=== PATIENT | male | born 1955 | race Caucasian/White ===

== ENCOUNTER 2017-08-23 23:50 | Observation (INO) | payer OTHER ==
[~2017-08-23] VITALS: Ht 180.3 cm; Wt 120.0 kg
[2017-08-23 23:54] VITALS: BP 170/115; PULSE 115; RESP 20; TEMP 98.5; O2SAT 97
[2017-08-24] VITALS (18 sets, daily range): BP systolic 132–170; BP diastolic 61–85; PULSE 99–109; RESP 16–20; TEMP 97.2–98.3; O2SAT 94–98
[2017-08-24] MEDS ORDERED: TRIA37.53 PO (00:11)
[2017-08-24] MEDS ORDERED: ALLO100T PO (00:11)
[2017-08-24] MEDS ORDERED: LISI40TA PO (00:12)
[2017-08-24] MEDS ORDERED: SODIUM CHLORIDE 0.9% FLUSH 10 ML FLUSH IVF PRN (00:15)
[2017-08-24] MEDS ORDERED: SODIUM CHLOR 0.9% 250 ML INJ 250 ML IV ONE (00:15)
--- NOTE | 2017-08-24 00:44 | RADRPT ---
EXAM DATE/TIME: 08/24/2017 00:20 [place] COMPARISON: No previous studies available for comparison. INDICATIONS : Chronic obstructive pulmonary disease related congestion and shortness of breath. MEDICAL HISTORY : Chronic obstructive pulmonary disease. Hypertension SURGICAL HISTORY : None. ENCOUNTER: Initial ACUITY: 1 day PAIN SCORE: 0/10 LOCATION: Bilateral chest FINDINGS: Single AP view of the chest. The lungs are clear. Cardiomediastinal silhouette within normal limits. No evidence of pleural effusion or pneumothorax. CONCLUSION: No acute cardiopulmonary disease identified. Zachery Panda MD on August 24, 2017 at 0:42 Board Certified Radiologist. This report was verified electronically.
[2017-08-24 01:09] LABS: AUTOMATED NEUTROPHIL # 10.9 TH/MM3 (1.8-7.7); BASOPHIL % 0.2 % (0.0-2.0); HEMOGLOBIN 14.4 GM/DL (13.0-17.0); LYMPH % 2.5 % (9.0-44.0); LYMPHOCYTE # 0.3 TH/MM3 (1.0-4.8); MEAN CELL VOLUME 94.3 FL (80.0-100.0); MEAN CORPUSCULAR HEMOGLOBIN 32.4 PG (27.0-34.0); MEAN CORPUSCULAR HGB CONC 34.3 % (32.0-36.0); MEAN PLATELET VOLUME 7.5 FL (7.0-11.0); MONO % 1.1 % (0.0-8.0); MONOCYTE # 0.1 TH/MM3 (0-0.9); NEUT % 96.2 % (16.0-70.0); PLATELET COUNT 259 TH/MM3 (150-450); RED BLOOD COUNT 4.46 MIL/MM3 (4.50-5.90); RED CELL DISTRIBUTION WIDTH 13.6 % (11.6-17.2); WHITE BLOOD COUNT 11.4 TH/MM3 (4.0-11.0)
[2017-08-24 01:20] LABS: PROTHROMBIN TIME - PATIENT 9.8 SEC (9.8-11.6)
[2017-08-24 01:32] LABS: ALKALINE PHOSPHATASE 69 U/L (45-117); TOTAL BILIRUBIN ADULT 0.4 MG/DL (0.2-1.0); TOTAL PROTEIN 8.3 GM/DL (6.4-8.2); TROPONIN I LESS THAN 0.02 NG/ML (0.02-0.05)
[2017-08-24 01:37] LABS: ALBUMIN 3.7 GM/DL (3.4-5.0); ALT (GPT) 24 U/L (12-78); AST (GOT) 22 U/L (15-37); BICARBONATE 17.1 MEQ/L (21.0-32.0); BLOOD UREA NITROGEN 22 MG/DL (7-18); CALCIUM 8.6 MG/DL (8.5-10.1); CHLORIDE 100 MEQ/L (98-107); CREATININE 1.48 MG/DL (0.60-1.30); GLOMERULAR FILTRATION RATE 48 ML/MIN (>89); GLUCOSE,RANDOM 190 MG/DL (74-106); MAGNESIUM 2.1 MG/DL (1.5-2.5); SODIUM (NA) 131 MEQ/L (136-145)
[2017-08-24] MEDS ORDERED: COLCHICINE 0.6 MG TAB PO ONE (04:00)
[2017-08-24] MEDS ORDERED: traMADol HCL 50 MG TAB PO ONE (04:00)
[2017-08-24] MEDS ORDERED: SODIUM CHLOR 0.9% 1000 ML INJ 1,000 ML IV SCH (04:17)
--- NOTE | 2017-08-24 04:18 | PD ---
HPI . Medication reaction Chief Complaint: Allergic/Adverse Reaction Time Seen by Provider: 00:04 Travel History International Travel<30 days: No Contact w/Intl Traveler<30days: No Traveled to known affect area: No History of Present Illness HPI 61-year-old male takes lisinopril for hypertension, presented to [facility] earlier today for what he presumed was an allergic reaction with right-sided lip swelling superior and inferior and right-sided facial swelling that was mild. IV is established and is treated with an histamines and IV steroids with no benefit. Physician's intestinal ER advised patient to be admitted to the hospital for probable angioedema secondary to lisinopril. Patient stated he felt okay and signed out. Patient now presents with dramatically worsening swelling of his right side of his face upper and lower lip and notes some fullness submental region. Patient also notes a little bit of strange feeling to his tongue. Patient denies any fevers chills sweats, denies drooling stridor or voice change currently. Patient is not aware of any family history of angioedema [facility] Past Medical History Narrative Medical Past medical history reviewed Hx Anticoagulant Therapy: Yes Cardiovascular Problems: Yes (HTN) COPD: Yes Hypertension: Yes Respiratory: Yes (COPD) Tetanus Vaccination: Unknown Influenza Vaccination: No Social History Alcohol Use: Yes Tobacco Use: Yes Substance Use: No Allergies-Medications (Allergen,Severity, Reaction): Coded Allergies: No Known Allergies (Verified Allergy, Unknown, 08/24/17) Reported Meds & Prescriptions Reported Meds & Active Scripts Active Reported Lisinopril 40 Mg Tab 40 Mg PO BID Allopurinol 100 Mg Tab 100 Mg PO DAILY Triamterene-Hydrochlorothiazide 37.5-25 Mg Cap 1 Cap PO DAILY Narrative Medication Allergies and medications reviewed Review of Systems Except as stated in HPI: all other systems reviewed are Neg General / Constitutional: No: Fever Eyes: No: Visual changes HENT: Positive: Sore Throat, Congestion, No: Headaches Cardiovascular: No: Chest Pain or Discomfort Respiratory: No: Shortness of Breath Gastrointestinal: No: Abdominal Pain Genitourinary: No: Dysuria Musculoskeletal: Positive: Pain Skin: No Rash Neurologic: No: Weakness Psychiatric: No: Depression Endocrine: No: Polydipsia Hematologic/Lymphatic: No: Easy Bruising Physical Exam Narrative GENERAL: Awake alert oriented 3 no acute distress SKIN: Warm and dry. HEAD: Atraumatic. Normocephalic. EYES: Pupils equal and round. No scleral icterus. No injection or drainage. ENT: No nasal bleeding or discharge. Mucous membranes pink and moist. Right sided superior and inferior lip and right side of bucca mucosa extensive swelling. Patient has mild some fullness in the submental region primarily in the right side. Uvula is midline. Tongue has no significant swelling. No soft or hard palate swelling NECK: Trachea midline. No JVD. Supple full range of motion no stridor CARDIOVASCULAR: Regular rate and rhythm. S1-S2 no murmurs or gallops RESPIRATORY: No accessory muscle use. Clear to auscultation. Breath sounds equal bilaterally. GASTROINTESTINAL: Abdomen soft, non-tender, nondistended. Hepatic and splenic margins not palpable. MUSCULOSKELETAL: Extremities without clubbing, cyanosis, or edema. No obvious deformities. Left foot great toe mild swelling and tenderness consistent with prior history of gout NEUROLOGICAL: Awake and alert. No obvious cranial nerve deficits. Motor grossly within normal limits. Five out of 5 muscle strength in the arms and legs. Normal speech. PSYCHIATRIC: Appropriate mood and affect; insight and judgment normal. Data Data Last Documented VS Vital Signs Date Time Temp Pulse Resp B/P (MAP) Pulse Ox O2 Delivery O2 Flow Rate FiO2 08/24/17 01:38 108 19 147/70 (95) 97 Room Air 08/23/17 23:54 98.5 Orders Orders Electrocardiogram (08/24/17 00:11) B-Type Natriuretic Peptide (08/24/17 00:11) Ckmb (Isoenzyme) Profile (08/24/17 00:11) Complete Blood Count With Diff (08/24/17 00:11) Comprehensive Metabolic Panel (08/24/17 00:11) Magnesium (Mg) (08/24/17 00:11) Prothrombin Time / Inr (Pt) (08/24/17 00:11) Act Partial Throm Time (Ptt) (08/24/17 00:11) Troponin I (08/24/17 00:11) Chest, Single Ap (08/24/17 00:11) Ecg Monitoring (08/24/17 00:11) Bilateral Bp Monitoring (08/24/17 00:11) Iv Access Insert/Monitor (08/24/17 00:11) Oximetry (08/24/17 00:11) Oxygen Administration (08/24/17 00:11) Sodium Chloride 0.9% Flush (Ns Flush) (08/24/17 00:15) Fresh Frozen Plasma (Ffp) (08/24/17 00:11) Blood Product Administration (08/24/17 00:11) Sodium Chlor 0.9% 250 Ml Inj (Ns 250 Ml (08/24/17 00:15) Abo/Rh Blood Type (08/24/17 00:11) Admit Order (Ed Use Only) (08/24/17 03:49) Colchicine (Colchicine) (08/24/17 04:00) Tramadol (Ultram) (08/24/17 04:00) Labs Laboratory Tests Test 08/24/17 00:31 White Blood Count 11.4 TH/MM3 Red Blood Count 4.46 MIL/MM3 Hemoglobin 14.4 GM/DL Hematocrit 42.0 % Mean Corpuscular Volume 94.3 FL Mean Corpuscular Hemoglobin 32.4 PG Mean Corpuscular Hemoglobin Concent 34.3 % Red Cell Distribution Width 13.6 % Platelet Count 259 TH/MM3 Mean Platelet Volume 7.5 FL Neutrophils (%) (Auto) 96.2 % Lymphocytes (%) (Auto) 2.5 % Monocytes (%) (Auto) 1.1 % Eosinophils (%) (Auto) 0.0 % Basophils (%) (Auto) 0.2 % Neutrophils # (Auto) 10.9 TH/MM3 Lymphocytes # (Auto) 0.3 TH/MM3 Monocytes # (Auto) 0.1 TH/MM3 Eosinophils # (Auto) 0.0 TH/MM3 Basophils # (Auto) 0.0 TH/MM3 CBC Comment AUTO DIFF Differential Comment AUTO DIFF CONFIRMED Prothrombin Time 9.8 SEC Prothromb Time International Ratio 1.0 RATIO Activated Partial Thromboplast Time 28.3 SEC Blood Urea Nitrogen 22 MG/DL Creatinine 1.48 MG/DL Random Glucose 190 MG/DL Total Protein 8.3 GM/DL Albumin 3.7 GM/DL Calcium Level 8.6 MG/DL Magnesium Level 2.1 MG/DL Alkaline Phosphatase 69 U/L Aspartate Amino Transf (AST/SGOT) 22 U/L Alanine Aminotransferase (ALT/SGPT) 24 U/L Total Bilirubin 0.4 MG/DL Sodium Level 131 MEQ/L Potassium Level 4.4 MEQ/L Chloride Level 100 MEQ/L Carbon Dioxide Level 17.1 MEQ/L Anion Gap 14 MEQ/L Estimat Glomerular Filtration Rate 48 ML/MIN Total Creatine Kinase 89 U/L Troponin I LESS THAN 0.02 NG/ML B-Type Natriuretic Peptide 14 PG/ML MDM Medical Decision Making Medical Screen Exam Complete: Yes Emergency Medical Condition: Yes Medical Record Reviewed: Yes Differential Diagnosis Acquired angioedema from JOSE inhibitor's, gouty exacerbation Narrative Course Considering patient's worsening of his symptoms, no response to any histamines and steroids administered [facility] 6 hours earlier, patient has probable angioedema secondary to lisinopril.Berinert not available in the hospital pharmacy, FFP mode of treatment available. Patient noted slight interval improvement upon administration of FFP. Case discussed with hospitalist service , admitted for observation Diagnosis Primary Impression: Angioedema due to angiotensin converting enzyme inhibitor (JOSE-I) Additional Impression: Gout attack Qualified Codes: M10.072 - Idiopathic gout, left ankle and foot Admitting Information Admitting Physician Requests: Observation Jose St MD Aug 24, 2017 04:18
[2017-08-24] MEDS ORDERED: ONDANSETRON HCL 4 MG/2 ML VIAL IVP PRN (04:30)
[2017-08-24] MEDS ORDERED: BISACODYL 10 MG SUPP RECTAL PRN (04:30)
[2017-08-24] MEDS ORDERED: SENNOSIDES 8.6 MG TAB PO PRN (04:30)
[2017-08-24] MEDS ORDERED: SODIUM CHLORIDE 0.9% FLUSH 10 ML FLUSH IV FLUSH PRN (04:30)
[2017-08-24] MEDS ORDERED: LACTULOSE SYRUP 20 GM/30 ML CUP PO PRN (04:30)
[2017-08-24] MEDS ORDERED: ACETAMINOPHEN 325 MG TAB PO PRN (04:30)
[2017-08-24] MEDS ORDERED: MORPHINE SULFATE 2 MG/ML INJ IV PUSH PRN (04:30)
[2017-08-24] MEDS ORDERED: MAGNESIUM HYDROXIDE SUSP 30 ML CUP PO PRN (04:30)
--- NOTE | 2017-08-24 04:48 | HHI.HP ---
[facility] Service [facility]ists Primary Care Physician Non-Staff Admission Diagnosis Acute Angioedema Diagnoses: (1) Angioedema due to angiotensin converting enzyme inhibitor(JOSE-I) Diagnosis: Principal (2) HTN (hypertension) Diagnosis: Principal (3) Renal insufficiency Diagnosis: Principal (4) Gout attack Diagnosis: Principal (5) Tobacco abuse Diagnosis: Principal Travel History International Travel<30 Days: No Contact w/Intl Traveler <30 Da: No Traveled to Known Affected Are: No History of Present Illness This is a 61-year-old male with PMH of HTN, COPD, Gout and Tobacco Abuse who presented to the ER with complaints of right-sided lip and facial swelling starting earlier today. States he lives in [place] and initially presented to [facility], was diagnosed w/ Angioedema likely due to Lisinopril, given steroids/antihistamines and offered admission, however pt refused and decided to drive here instead. Reports no h/o similar symptoms in the past. States symptoms began as lip swelling, then progressed to right-sided facial swelling w / almost complete occlusion of vision due to swelling. No difficulty swallowing , no respiratory distress. Also notes acute left foot swelling typical of his Gout. On arrival, BP 170/115, HR 115, O2 sat 97% on RA, Afebrile. WBC 11.4. Creatinine 1.48, no previous labs for comparison. INR 1.0. CXR with no acute findings. Currently receiving FFP in the ER, reports swelling slightly improved. Review of Systems Except as stated in HPI: all other systems reviewed are Neg ROS: 14 point review of systems otherwise negative. Past Family Social History Past Medical History PMH: HTN, COPD, Gout and Tobacco Abuse Past Surgical History PAST SURGICAL HISTORY: None Allergies: Coded Allergies: No Known Allergies (Verified Allergy, Unknown, 08/24/17) Family History PAST FAMILY HISTORY: Reviewed. No h/o DM or CAD Social History PAST SOCIAL HISTORY: Positive for alcohol and tobacco. Negative for drugs. Physical Exam Vital Signs Vital Signs Date Time Temp Pulse Resp B/P (MAP) Pulse Ox O2 Delivery O2 Flow Rate FiO2 08/24/17 04:25 97.7 100 18 147/79 98 08/24/17 01:38 108 19 147/70 (95) 97 Room Air 08/24/17 01:35 109 20 137/71 (93) 97 Room Air 08/24/17 01:28 Room Air 08/24/17 00:40 96 Room Air 08/24/17 00:40 96 Room Air 08/23/17 23:54 98.5 115 20 170/115 (133) 97 Physical Exam PE: GENERAL: Middle-aged white male in no acute distress. No difficulty w/ speech, no airway compromise. HEENT: PERRLA, EOMI. No scleral icterus or conjunctival pallor. No lid lag or facial droop. +right-sided facial and lip swelling. CARDIOVASCULAR: Regular rate and rhythm. No obvious murmurs to auscultation. No chest tenderness to palpation. RESPIRATORY: No obvious rhonchi or wheezing. Clear to auscultation. Breath sounds equal bilaterally. GASTROINTESTINAL: Abdomen soft, non-tender, nondistended. BS normal. MUSCULOSKELETAL: Extremities without clubbing, cyanosis, or edema. No obvious deformities. Left foot edema/erythema, +gout NEUROLOGICAL: Awake, alert and oriented x4. No focal neurologic deficits. Moving both upper and lower extremities spontaneously. Laboratory Laboratory Tests Test 08/24/17 00:31 White Blood Count 11.4 Red Blood Count 4.46 Hemoglobin 14.4 Hematocrit 42.0 Mean Corpuscular Volume 94.3 Mean Corpuscular Hemoglobin 32.4 Mean Corpuscular Hemoglobin Concent 34.3 Red Cell Distribution Width 13.6 Platelet Count 259 Mean Platelet Volume 7.5 Neutrophils (%) (Auto) 96.2 Lymphocytes (%) (Auto) 2.5 Monocytes (%) (Auto) 1.1 Eosinophils (%) (Auto) 0.0 Basophils (%) (Auto) 0.2 Neutrophils # (Auto) 10.9 Lymphocytes # (Auto) 0.3 Monocytes # (Auto) 0.1 Eosinophils # (Auto) 0.0 Basophils # (Auto) 0.0 CBC Comment AUTO DIFF Differential Comment AUTO DIFF CONFIRMED Prothrombin Time 9.8 Prothromb Time International Ratio 1.0 Activated Partial Thromboplast Time 28.3 Blood Urea Nitrogen 22 Creatinine 1.48 Random Glucose 190 Total Protein 8.3 Albumin 3.7 Calcium Level 8.6 Magnesium Level 2.1 Alkaline Phosphatase 69 Aspartate Amino Transf (AST/SGOT) 22 Alanine Aminotransferase (ALT/SGPT) 24 Total Bilirubin 0.4 Sodium Level 131 Potassium Level 4.4 Chloride Level 100 Carbon Dioxide Level 17.1 Anion Gap 14 Estimat Glomerular Filtration Rate 48 Total Creatine Kinase 89 Troponin I LESS THAN 0.02 B-Type Natriuretic Peptide 14 Result Diagram: 08/24/173008/24/1730 Caprini VTE Risk Assessment Caprini VTE Risk Assessment: No/Low Risk (score <= 1) Caprini Risk Assessment Model Point Value = 1 Point Value = 2 Point Value = 3 Point Value = 5 Age 41-60 Minor surgery BMI > 25 kg/m2 Swollen legs Varicose veins or History of unexplained or recurrent spontaneous Oral contraceptives or hormone replacement Sepsis (< 1 month) Serious lung disease, including pneumonia (< 1 month) Abnormal pulmonary function Acute myocardial infarction Congestive heart failure (< 1 month) History of inflammatory bowel disease Medical patient at bed rest Age 61-74 Arthroscopic surgery Major open surgery (> 45 min) Laparoscopic surgery (> 45 min) Malignancy Confined to bed (> 72 hours) Immobilizing plaster cast Central venous access Age >= 75 History of VTE Family history of VTE Factor V Leiden Prothrombin [id number] Lupus anticoagulant Anticardiolipin antibodies Elevated serum homocysteine Heparin-induced thrombocytopenia Other congenital or acquired thrombophilia Stroke (< 1 month) Elective arthroplasty Hip, pelvis, or leg fracture Acute spinal cord injury (< 1 month) Prophylaxis Regimen Total Risk Factor Score Risk Level Prophylaxis Regimen 0-1 Low Early ambulation 2 Moderate Order ONE of the following: *Sequential Compression Device (SCD) *Heparin 5000 units SQ BID 3-4 Higher Order ONE of the following medications: *Heparin 5000 units SQ TID *Enoxaparin/Lovenox 40 mg SQ daily (WT < 150 kg, CrCl > 30 mL/min) *Enoxaparin/Lovenox 30 mg SQ daily (WT < 150 kg, CrCl > 10-29 mL/min) *Enoxaparin/Lovenox 30 mg SQ BID (WT < 150 kg, CrCl > 30 mL/min) AND/OR *Sequential Compression Device (SCD) 5 or more Highest Order ONE of the following medications: *Heparin 5000 units SQ TID (Preferred with Epidurals) *Enoxaparin/Lovenox 40 mg SQ daily (WT < 150 kg, CrCl > 30 mL/min) *Enoxaparin/Lovenox 30 mg SQ daily (WT < 150 kg, CrCl > 10-29 mL/min) *Enoxaparin/Lovenox 30 mg SQ BID (WT < 150 kg, CrCl > 30 mL/min) AND *Sequential Compression Device (SCD) Assessment and Plan Problem List: (1) Angioedema due to angiotensin converting enzyme inhibitor(JOSE-I) ICD Code: T78.3XXA - Angioneurotic edema, initial encounter; T46.4X1A - Poisoning by jkrfdcluntu-jfhwjxouce-enjqfv inhibitors, accidental (unintentional ), initial encounter Status: Acute (2) Gout attack ICD Code: M10.9 - Gout, unspecified Status: Acute (3) Renal insufficiency ICD Code: N28.9 - Disorder of kidney and ureter, unspecified (4) HTN (hypertension) ICD Code: I10 - Essential (primary) hypertension (5) Tobacco abuse ICD Code: Z72.0 - Tobacco use Assessment and Plan A/P: 1. Angioedema: likely secondary to Lisinopril, I have updated ALLERGY profile to reflect reaction to Lisinopril. S/p steroids/antihistamine in [facility] w/ minimal improvement, currently receiving FFP in the ER. Continue FFP. Admit for Observation, monitor closely for airway compromise. 2. Gout: w/ Acute Flare, +left foot swelling/redness. Colchicine bid. Analgesics as needed. 3. Renal Insufficiency: Creatinine 1.48, no previous labs for comparison. IVF for hydration, repeat labs in am. 4. HTN: Uncontrolled. BP 170's. Hold Lisinopril secondary to above. Monitor BP, currently 130's systolic, antihypertensives as needed. 5. Tobacco Abuse: Pt counselled. NicoDerm prn if needed. 6. DVT Prophylaxis: SCD/prashanth. 7. Social work for d/c planning as needed. 8. Labs/records/imaging reviewed. Case discussed w/ ER physician at length. Problem Qualifiers (1) Gout attack: Qualified Codes: M10.072 - Idiopathic gout, left ankle and foot Maria A Chi MD Aug 24, 2017 04:48
[2017-08-24] MEDS: ACETAMINOPHEN/HYDROcodone 325 MG/5 MG TAB PO PRN ×2 (06:36→10:34)
[2017-08-24] MEDS ORDERED: COLCHICINE 0.6 MG TAB PO SCH (09:00)
[2017-08-24] MEDS ORDERED: SODIUM CHLORIDE 0.9% FLUSH 10 ML FLUSH IV FLUSH SCH (09:00)
[2017-08-24] MEDS ORDERED: DOCUSATE SODIUM 50 MG/SENNA 8.6 MG TAB PO SCH (09:00)
[2017-08-24] MEDS ORDERED: predniSONE 20 MG TAB PO SCH (09:00)
[2017-08-24] MEDS ORDERED: RESP: ALBUTEROL 2.5 MG/IPRATROPIUM 0.5 MG NEB (PRN) NEB (09:45)
[2017-08-24] MEDS ORDERED: FAMOTIDINE 20 MG/2 ML VIAL IV PUSH SCH (10:00)
[2017-08-24] MEDS: RESP: ALBUTEROL 2.5 MG/IPRATROPIUM 0.5 MG NEB (SCH) NEB ×2 (10:01→12:45)
[2017-08-24] MEDS ORDERED: PRED20 PO (11:42)
--- NOTE | 2017-08-24 11:43 | HHI.DCPOC ---
Discharge Care Plan Diagnosis: (1) HTN (hypertension) (2) Tobacco abuse (3) Renal insufficiency (4) Angioedema due to angiotensin converting enzyme inhibitor(JOSE-I) (5) Gout attack Goals to Promote Your Health * To prevent worsening of your condition and complications * To maintain your health at the optimal level Directions to Meet Your Goals Take your medications as prescribed Follow your dietary instruction Follow activity as directed Keep your appointments as scheduled Take your immunizations and boosters as scheduled If your symptoms worsen call your PCP, if no PCP go to Urgent Care Center or Emergency Room Smoking is Dangerous to Your Health. Avoid second hand smoke Call the 24-hour hour crisis hotline for domestic abuse at Zev Estrada DO Aug 24, 2017 11:42
--- NOTE | 2017-08-24 11:44 | PD.AMA ---
Against Medical Advice Note Diagnosis: (1) Gout attack (2) Angioedema due to angiotensin converting enzyme inhibitor(JOSE-I) (3) Renal insufficiency (4) Tobacco abuse (5) HTN (hypertension) Discharge Disposition: Against Medical Advice Pt Condition on Discharge: Fair Recommended Treatment Course Steroids, IVFs, IV Pepcid, close monitoring, pain control AMA Statement Patient Dino Stark has decided to leave the hospital against medical advice. This patient has the capacity to refuse care and understands the risks of leaving, including permanent disability and/or , and has had an opportunity to ask questions about his condition. The patient has been informed that he may return for care at any time, and follow up has been arranged/ advised. Zev Estrada DO Aug 24, 2017 11:44
--- NOTE | 2017-08-24 11:48 | HHI.PR ---
Subjective Remarks The patient did not want to stay in the hospital. He wanted to go and smoke a cigarette. He wanted to know what blood pressure medications to take. He wanted pain medications upon discharge. He wanted nebulizers. Discussed with nursing. Objective Vitals Vital Signs Date Time Temp Pulse Resp B/P (MAP) Pulse Ox O2 Delivery O2 Flow Rate FiO2 08/24/17 07:57 97.2 99 20 132/71 (91) 94 08/24/17 06:24 98.3 102 18 169/85 (113) 96 08/24/17 05:15 97.7 100 16 170/71 98 08/24/17 04:45 97.7 100 18 169/72 08/24/17 04:25 97.7 100 18 147/79 98 08/24/17 04:00 97.7 100 17 159/73 98 08/24/17 03:45 97.7 99 16 161/72 98 08/24/17 03:30 97.7 100 16 149/72 98 08/24/17 03:15 97.7 100 18 151/78 98 08/24/17 03:05 97.7 100 16 151/61 (91) 98 Room Air 08/24/17 02:50 97.7 100 19 151/70 (97) 98 Room Air 08/24/17 01:35 109 20 137/71 (93) 97 Room Air 08/24/17 01:28 Room Air 08/24/17 00:40 96 Room Air 08/24/17 00:40 96 Room Air 08/24/17 00:10 97.7 100 19 147/72 (97) 98 Room Air 08/23/17 23:54 98.5 115 20 170/115 (133) 97 I/O 08/23/17 08/23/17 08/23/17 08/24/17 08/24/17 08/24/17 07:00 15:00 23:00 07:00 15:00 23:00 Intake Total 1135 ml Balance 1135 ml Intake FFP 535 ml Blood Product IV Normal Saline Flush 600 ml Result Diagram: 08/24/17 0031 08/24/17 0031 Imaging Last Impressions Chest X-Ray 08/24/17 0011 Signed Impressions: Service Date/Time: Thursday, August 24, 2017 00:20 - CONCLUSION: No acute cardiopulmonary disease identified. Zachery Panda MD Objective Remarks GENERAL: Middle-aged male in no acute distress. No difficulty w/ speech, no airway compromise. HEENT: PERRLA, EOMI. No scleral icterus or conjunctival pallor. No lid lag or facial droop. +right-sided facial and lip swelling. CARDIOVASCULAR: Regular rate and rhythm. No obvious murmurs to auscultation. No chest tenderness to palpation. RESPIRATORY: No obvious rhonchi or wheezing. Clear to auscultation. Breath sounds equal bilaterally. GASTROINTESTINAL: Abdomen soft, non-tender, nondistended. BS normal. MUSCULOSKELETAL: Extremities without clubbing, cyanosis. No obvious deformities. Left foot edema/erythema, +gout NEUROLOGICAL: Awake, alert and oriented x4. No focal neurologic deficits. Moving both upper and lower extremities spontaneously. PSYCH: Slightly agitated. Medications and IVs Current Medications Medications (Trade) Dose Ordered Sig/Laureano Route Start Time Stop Time Status Last Admin Sodium Chloride 250 ml @ 15 mls/hr ONCE ONCE IV 08/24/17 00:15 08/24/17 16:54 08/24/17 04:38 Sodium Chloride 1,000 ml @ 100 mls/hr Q10H IV 08/24/17 04:17 (NS Flush) 2 ml UNSCH PRN IV FLUSH 08/24/17 04:30 (NS Flush) 2 ml BID IV FLUSH 08/24/17 09:00 (Zofran Inj) 4 mg Q6H PRN IVP 08/24/17 04:30 (Tylenol) 650 mg Q6H PRN PO 08/24/17 04:30 (Moore 5-325 Mg) 1 tab Q4H PRN PO 08/24/17 04:30 08/24/17 10:34 (Morphine Inj) 2 mg Q3H PRN IV PUSH 08/24/17 04:30 (Nory-Colace) 1 tab BID PO 08/24/17 09:00 (Milk Of Magnesia Liq) 30 ml Q12H PRN PO 08/24/17 04:30 (Senokot) 17.2 mg Q12H PRN PO 08/24/17 04:30 (Dulcolax Supp) 10 mg DAILY PRN RECTAL 08/24/17 04:30 (Lactulose Liq) 30 ml DAILY PRN PO 08/24/17 04:30 (Deltasone) 40 mg DAILY PO 08/24/17 09:00 08/24/17 09:54 (Duoneb Neb) 1 ampule Q6HR WHILE AWAKE NEB NEB 08/24/17 09:45 08/24/17 10:01 (Duoneb Neb) 1 ampule Q2HR NEB PRN NEB 08/24/17 09:45 (Pepcid Inj) 20 mg Q12HR IV PUSH 08/24/17 10:00 08/24/17 10:27 A/P Problem List: (1) Angioedema due to angiotensin converting enzyme inhibitor(JOSE-I) ICD Code: T78.3XXA - Angioneurotic edema, initial encounter; T46.4X1A - Poisoning by blmaffgoiot-tbbtkbehxv-njwrjc inhibitors, accidental (unintentional ), initial encounter Status: Acute (2) Gout attack ICD Code: M10.9 - Gout, unspecified Status: Acute (3) Renal insufficiency ICD Code: N28.9 - Disorder of kidney and ureter, unspecified (4) HTN (hypertension) ICD Code: I10 - Essential (primary) hypertension (5) Tobacco abuse ICD Code: Z72.0 - Tobacco use Assessment and Plan 1. Angioedema: likely secondary to Lisinopril, I have updated ALLERGY profile to reflect reaction to Lisinopril. S/p steroids/antihistamine in [facility]. S/p FFP in the ER. Continue FFP. - Admit for Observation, monitor closely for airway compromise. - continue steroids and Pepcid. - the pt is leaving AMA. Will prescribe prednisone for discharge. 2. Gout: w/ Acute Flare, +left foot swelling/redness. - Analgesics as needed. - the pt is leaving AMA. Will prescribe prednisone for discharge. 3. Renal Insufficiency: Creatinine 1.48, no previous labs for comparison. - IVF for hydration, repeat labs in am. - d/c HCTZ/ triamterene and lisinopril. 4. HTN: Uncontrolled. BP 170's. - Hold Lisinopril/ HCTZ/ triamterene secondary to above. - Monitor BP, currently 130's systolic, antihypertensives as needed. 5. Tobacco Abuse: Pt counselled. - NicoDerm prn if needed. 6. DVT Prophylaxis: SCD/prashanth. Discharge Planning The pt was advised to stay an additional day for monitoring and treatment but he refused and decided to leave AMA Problem Qualifiers (1) Gout attack: Qualified Codes: M10.072 - Idiopathic gout, left ankle and foot Zev Estrada DO Aug 24, 2017 11:48
--- NOTE | 2017-08-24 13:50 | EKG ---
Date Performed: 08/24/2017 Time Performed: 00:34:57 PTAGE: 61 years EKG: SINUS TACHYCARDIA Within normal limits NO PREVIOUS TRACING DOCTOR: Hussain Vanegas Interpretating Date/Time 08/24/2017 13:49:32
== END 2017-08-24 12:47 | disposition left against medical advice (07) ==
LOC: NEPE 23:50 → NEDA 08-24 03:50 → N05A 08-24 05:18
PROVIDERS: ADMIT Hospitalist; ATTEND Hospitalist
DX: T78.3XXA Angioneurotic edema, initial encounter (principal); T46.4X5A Adverse effect of angiotensin-converting-enzyme inhibitors, initial encounter; M10.072 Idiopathic gout, left ankle and foot; I10 Essential (primary) hypertension; N28.9 Disorder of kidney and ureter, unspecified; J44.9 Chronic obstructive pulmonary disease, unspecified; Z72.0 Tobacco use; Z79.01 Long term (current) use of anticoagulants
CPT/HCPCS: 36430; 71045; 80053; 82550; 83735; 83880; 84484; 85025; 85610; 85730; 86900; 86901; 86927; 93005; 94664; 96374; 99285; G0378; J7050; J7512; P9017